=== PATIENT | female | born 1995 | race Two or more races ===

== ENCOUNTER 2020-09-06 11:08 | Emergency (ER) | payer SELFPAY ==
[~2020-09-06] VITALS: Ht 152.4 cm; Wt 49.9 kg
--- NOTE | 2020-09-06 11:14 | NUR ---
ED Nurse Note: pt BARRIE ESPOSITOMaki RA 26 from the [place], per EMS pt knocked on their station door saying that she was short of breath and wanted to come to hospital. pt is speaking in full sentences with saturation within normal limits. EMS report that pt said she didn't know her name and self diagnosed herself with TB. no other complaints at this time. EMS placed an 18gauge IV to pt's L AC and adminsitered 500 cc of NS for hypotension Addendum: 09/06/20 at 1127 by EFE IV site is in L wrist
[2020-09-06 11:15] VITALS: BP 95/60
--- NOTE | 2020-09-06 11:27 | NUR ---
ED Nurse Note: pt becomes agitated when RN is in pt room trying to get her onto senior datastage developer. pt refusing to provide urine sample at this time. BP is noted to be 89 systolically, pt given IV fluids through L AC IV site. denies any pain at this time
[2020-09-06 11:30] VITALS: BP 84/56
--- NOTE | 2020-09-06 11:34 | NUR ---
ED Nurse Note: Pt report left rib pain starting a few hours. pt denies SOB, pt refuses to give urine sample, pt tries to avoid question of drug use. IV patent and running NS
[2020-09-06 12:33] LABS: ANION GAP 8 mmol/L (5-15); BLOOD UREA NITROGEN 6 mg/dL (7-18); CALCIUM 8.5 MG/DL (8.5-10.1); CARBON DIOXIDE 25 MMOL/L (21-32); CHLORIDE 109 MMOL/L (98-107); POTASSIUM 4.2 MMOL/L (3.5-5.1); SODIUM 142 MMOL/L (136-145)
[2020-09-06 12:38] LABS: ALANINE AMINOTRANSFERASE 18 U/L (12-78); ALBUMIN 3.3 G/DL (3.4-5.0); ALBUMIN/GLOBULIN RATIO 1.1 (1.0-2.7); ALKALINE PHOSPHATASE 82 U/L (46-116); ASPARTATE AMINO TRANSFERASE 13 U/L (15-37); BILIRUBIN,TOTAL 0.3 MG/DL (0.2-1.0)
--- NOTE | 2020-09-06 12:40 | NUR ---
ED Nurse Note: xray completed.
--- NOTE | 2020-09-06 12:46 | Diagnostic Imaging Report ---
EXAM: XR Chest, 1 View CLINICAL HISTORY: ABD PAIN TECHNIQUE: Frontal view of the chest. COMPARISON: No relevant prior studies available. FINDINGS: Lungs: Unremarkable. No consolidation. Pleural space: Unremarkable. No pneumothorax. Heart: Unremarkable. No cardiomegaly. Mediastinum: Unremarkable. Bones/joints: Unremarkable. Other: No upper abdominal free air. IMPRESSION: No evidence of acute pulmonary disease
[2020-09-06 13:12] LABS: BASOPHILS % (AUTO) 1.4 % (0.0-2.0); EOSINOPHILS % (AUTO) 3.2 % (0.0-3.0); HEMATOCRIT 38.4 % (37.0-47.0); HEMOGLOBIN 12.5 G/DL (12.0-16.0); LYMPHOCYTES % (AUTO) 35.7 % (20.0-45.0); MEAN CORPUSCULAR VOLUME 98 FL (80-99); NEUTROPHILS % (AUTO) 48.8 % (45.0-75.0); PLATELET COUNT 189 K/UL (150-450); RED CELL DISTRIBUTION WIDTH 12.5 % (11.6-14.8); WHITE BLOOD COUNT 5.6 K/UL (4.8-10.8)
--- NOTE | 2020-09-06 13:26 | NUR ---
ED Nurse Note: Pt in bed asleep, when asked to provide a urine sample pt stating "I already said no" and went back to sleep.
--- NOTE | 2020-09-06 13:34 | NUR ---
ED Nurse Note: SUNILD spoke to pt, IV site removed.
[2020-09-06 13:35] VITALS: BP 97/59
[2020-09-06 13:41] VITALS: BP 96/62
--- NOTE | 2020-09-06 13:41 | NUR ---
ER DISCHARGE NOTE: Patient is cleared to be discharged per ERMD, pt is aox4, on room air, with stable vital signs. pt was given dc and prescription instructions, pt was able to verbalize understanding, pt id band and iv site removed without complications. pt is able to ambulate with steady gait. pt took all belongings.
--- NOTE | 2020-09-07 15:25 | Emergency Room Report ---
History of Present Illness General Chief Complaint: General Complaint Source: Patient Present Illness HPI 25-year-old female presents for evaluation. Br[place] [facility] [place]. States she feels weak and that she has tuberculosis. Denies cough. Denies fevers or chills. BP in field 80s over 50s. Given IV fluids per EMS. On arrival patient stating that she needs a ride to her home which is far away. Denies chest pain or shortness of breath. No other aggravating relieving factors. Denies any other associated symptoms Allergies: Coded Allergies: No Known Allergies (Unverified , 09/06/20) COVID-19 Screening Contact w/high risk pt: No Experienced COVID-19 symptoms?: No COVID-19 Testing performed HOME DEMONSTRATION AGENT: No Patient History Past Medical History: none Past Surgical History: none Pertinent Family History: none Social History: Denies: smoking, alcohol use, drug use Now: No - 09/03/20 Immunizations: UTD Reviewed Nursing Documentation: PMH: Agreed; PSxH: Agreed Nursing Documentation-PMH Past Medical History: No Stated History Review of Systems All Other Systems: negative except mentioned in HPI Physical Exam Vital Signs Date Time Temp Pulse Resp B/P (MAP) Pulse Ox O2 Delivery O2 Flow Rate FiO2 09/06/20 11:09 98.1 74 18 95/60 (72) 98 Room Air Sp02 EP Interpretation: reviewed, normal General Appearance: no apparent distress, alert, GCS 15, non-toxic Head: normocephalic, atraumatic Eyes: bilateral eye normal inspection, bilateral eye PERRL ENT: hearing grossly normal, normal pharynx, no angioedema, normal voice Neck: full range of motion, supple/symm/no masses Respiratory: chest non-tender, lungs clear, normal breath sounds, speaking full sentences Cardiovascular #1: regular rate, rhythm, no edema Cardiovascular #2: 2+ carotid (R), 2+ carotid (L), 2+ radial (R), 2+ radial (L), 2+ dorsalis pedis (R), 2+ dorsalis pedis (L) Gastrointestinal: normal bowel sounds, non tender, soft, non-distended, no guarding, no rebound Rectal: deferred Genitourinary: normal inspection, no CVA tenderness Musculoskeletal: back normal, normal range of motion, gait/station normal, non- tender Neurologic: alert, motor strength/tone normal, oriented x3, sensory intact, responsive, speech normal Psychiatric: judgement/insight normal, memory normal, mood/affect normal, no suicidal/homicidal ideation Reflexes: 3+ bicep (R), 3+ bicep (L), 3+ tricep (R), 3+ tricep (L), 3+ knee (R), 3+ knee (L) Lymphatic: no adenopathy Medical Decision Making Homeless Attestation I, The treating physician Dr. Danielle, have assessed and agrees that patient is medically stable for discharge to an outpatient disposition. Diagnostic Impression: Primary Impression: Generalized weakness ER Course Hospital Course 25-year-old female presents stating that she has tuberculosis. States she feels weak. BP low in field. differential diagnosis: UTI, dehydration, anemia Clinical course Patient placed on stretcher. On quality assurance monitor body. After initial history and physical I ordered labs, IV fluids, chest x-ray Labs - no leukocytosis, electrolytes ok, LFTs normal, UA unremarkable Chest x-ray no focal consolidation no acute process BP improved after IV fluids. I discussed findings with patient. Reassurance given. Will discharge home. States that she would like to stay here for 32 hours that she does not have a place to stay. Is requesting transport to her home which is 100 miles away. Explained that there is no medical reason for admission. Will provide [facility] referrals. I feel this is a highly complex case requiring extensive working including EKG/Rhythm strip, Xray/CT/US, Blood/urine lab work, repeat exams while in ED, and administration of strong opiates/narcotics for pain control, admission to hospital or close patient follow up. Diagnosis - generalized weakness Stable and discharged to home. Followup with PMD. Return to ED if symptoms recur or worsen Labs Test 09/06/20 11:20 White Blood Count 5.6 K/UL (4.8-10.8) Red Blood Count 3.90 M/UL (4.20-5.40) Hemoglobin 12.5 G/DL (12.0-16.0) Hematocrit 38.4 % (37.0-47.0) Mean Corpuscular Volume 98 FL (80-99) Mean Corpuscular Hemoglobin 32.0 PG (27.0-31.0) Mean Corpuscular Hemoglobin Concent 32.5 G/DL (32.0-36.0) Red Cell Distribution Width 12.5 % (11.6-14.8) Platelet Count 189 K/UL (150-450) Mean Platelet Volume 7.8 FL (6.5-10.1) Neutrophils (%) (Auto) 48.8 % (45.0-75.0) Lymphocytes (%) (Auto) 35.7 % (20.0-45.0) Monocytes (%) (Auto) 11.0 % (1.0-10.0) Eosinophils (%) (Auto) 3.2 % (0.0-3.0) Basophils (%) (Auto) 1.4 % (0.0-2.0) Sodium Level 142 MMOL/L (136-145) Potassium Level 4.2 MMOL/L (3.5-5.1) Chloride Level 109 MMOL/L (98-107) Carbon Dioxide Level 25 MMOL/L (21-32) Anion Gap 8 mmol/L (5-15) Blood Urea Nitrogen 6 mg/dL (7-18) Creatinine 1.0 MG/DL (0.55-1.30) Estimat Glomerular Filtration Rate > 60 mL/min (>60) Glucose Level 100 MG/DL (74-106) Calcium Level 8.5 MG/DL (8.5-10.1) Total Bilirubin 0.3 MG/DL (0.2-1.0) Aspartate Amino Transf (AST/SGOT) 13 U/L (15-37) Alanine Aminotransferase (ALT/SGPT) 18 U/L (12-78) Alkaline Phosphatase 82 U/L (46-116) Total Protein 6.2 G/DL (6.4-8.2) Albumin 3.3 G/DL (3.4-5.0) Globulin 2.9 g/dL Albumin/Globulin Ratio 1.1 (1.0-2.7) Chest X-Ray Diagnostic Results Chest X-Ray Diagnostic Results : Chest X-Ray Ordered: Yes # of Views/Limited/Complete: 1 View Indication: Other EP Interpretation: Yes Interpretation: no consolidation, no effusion, no pneumothorax, no acute cardiopulmonary disease Impression: No acute disease Electronically Signed by: Electronically signed by Flex Danielle MD Last Vital Signs Date Time Temp Pulse Resp B/P (MAP) Pulse Ox O2 Delivery O2 Flow Rate FiO2 11/21/20 13:41 98.1 71 17 96/62 99 Room Air Status: improved Disposition: HOME, SELF-CARE Condition: Stable Scripts No Active Prescriptions or Reported Meds Referrals: NOT CHOSEN IPA/,REFERRING (PCP) Leann Patricia [facility]. [facility] Patient Instructions: Weakness, [id number] Flex Danielle MD Sep 07, 2020 15:25
== END 2020-09-06 13:45 | disposition home or self-care (01) ==
LOC: EDBD 11:08 → EMR 12:20
DX: R53.1 Weakness (principal)
CPT/HCPCS: 36415; 71045; 80053; 85025; 96360; 99284